=== PATIENT | male | born 1950 | race African-American/Black ===

== ENCOUNTER 2019-04-08 09:11 | Emergency (ER) | payer SELFPAY ==
[~2019-04-08] VITALS: Ht 175.3 cm; Wt 80.0 kg
[2019-04-08] MEDS ORDERED: SODIUM CHLORIDE 0.9% 1000ML BAG (SEPSIS BOLUS) IV ONE (09:30)
[2019-04-08] MEDS ORDERED: VANCOMYCIN 1 G PREMIX 200 ML IV ONE (09:30)
[2019-04-08] MEDS ORDERED: PIPERACILLIN/TAZ 3.375G PREMIX 50 ML IV ONE (09:30)
[2019-04-08 09:52] LABS: BG BASE EXCESS 0.1 mmol/L (-2.0-2.0); BG CARBOXYHEMOGLOBIN 0.6 % (0.5-1.5); BG DEOXYHEMOGLOBIN 20.3 % (0.0-5.0); BG FRACTION INSPIRED OXYGEN 21; BG HCO3 ACT 26.4 mmol/L (22.0-26.0); BG METHEMOGLOBIN 0.2 % (0.0-1.5); BG OXYGEN SATURATION 79.5 % (92.0-98.5); BG OXYHEMOGLOBIN 78.9 % (94.0-97.0); BG PCO2 50.7 mmHg (35.0-45.0); BG PH 7.334 (7.350-7.450); BG PO2 53.5 mmHg (75.0-100.0); BG SAMPLE SITE LEFT RADIAL; BG TOTAL HEMOGLOBIN 10.1 g/dL (12.0-18.0); BG VENT MODE ROOM AIR
[2019-04-08 10:01] LABS: BASOPHILS % 0.7 % (0.0-2.0); EOSINOPHILS % 0.6 % (0.0-5.0); HEMATOCRIT. 28.8 % (42.0-52.0); HEMOGLOBIN. 9.4 g/dL (14.0-18.0); LYMPHOCYTES % 34.2 % (20.0-50.0); MEAN CORPUSCULAR HEMOGLOBIN 22.9 pg (28.0-32.0); MEAN CORPUSCULAR VOLUME 70.1 fL (80.0-94.0); MEAN PLATELET VOLUME 7.8 fl (7.4-10.4); MONOCYTES % 5.3 % (2.0-8.0); NEUTROPHILS % 59.2 % (40.0-76.0); PLATELET 394 x1000/uL (130-400); RED BLOOD CELL COUNT 4.11 mill/uL (4.7-6.1); RED CELL DISTRIBUTION WIDTH 17.4 % (11.6-14.6)
[2019-04-08 10:08] LABS: CHLORIDE 103 mEq/L (98-107)
[2019-04-08 10:09] LABS: PROTHROMBIN TIME 10.6 sec (9.6-11.0)
[2019-04-08 10:13] LABS: CLARITY URINE CLEAR (CLEAR); COLOR URINE YELLOW (YELLOW); KETONES URINE NEGATIVE (NEGATIVE); LEUKOCYTE ESTERASE URINE NEGATIVE (NEGATIVE); NITRITE URINE NEGATIVE (NEGATIVE); OCCULT BLOOD URINE NEGATIVE (NEGATIVE); PROTEIN URINE NEGATIVE (NEGATIVE); SPECIFIC GRAVITY URINE 1.009 (1.005-1.030); UROBILINOGEN URINE 0.2 E.U./dL (0.2-1.0)
[2019-04-08 10:35] LABS: ETHANOL BLOOD 433 mg/dL
[2019-04-08 10:43] LABS: METHADONE URINE SCREEN NEGATIVE (NEGATIVE); OPIATES URINE SCREEN NEGATIVE (NEGATIVE)
[2019-04-08 10:45] LABS: *AMPHETAMINES SCREEN URINE NEGATIVE (NEGATIVE); *BARBITURATES SCREEN URINE NEGATIVE (NEGATIVE); *BENZODIAZEPINES SCREEN URINE NEGATIVE (NEGATIVE); *COCAINE SCREEN URINE NEGATIVE (NEGATIVE); CANNABINOID URINE SCREEN NEGATIVE (NEGATIVE); PHENCYCLIDINE URINE SCREEN NEGATIVE (NEGATIVE)
[2019-04-08] MEDS ORDERED: IOHEXOL-300 100 ML BOTTLE ONE (11:53)
[2019-04-08 13:44] VITALS: BP 128/89
== END 2019-04-08 14:12 ==
LOC: ER 09:11 → EDBEDREQSVC 12:06 → EDBEDREQ 12:06 → CANRESERV 14:11 → ENRESERV 14:11 → ER 14:12 → CANBEDREQ 14:26
DX: R41.82 Altered mental status, unspecified (principal); L03.113 Cellulitis of right upper limb; F10.129 Alcohol abuse with intoxication, unspecified; Y90.8 Blood alcohol level of 240 mg/100 ml or more
CPT/HCPCS: 36415; 36600; 70450; 71045; 73201; 80053; 80305; 80307; 80320; 80329; 81003; 82140; 82375; 82805; 82962; 83605; 83690; 84145; 84443; 84484; 85025; 85610; 87040; 87086; 87804; 93005; 96365; 96368; 99284; J2543; J3370; J7030; Q9967; Z7610; G0480